=== PATIENT | male | born 1950 | race Caucasian/White ===

== ENCOUNTER → 2016-11-13 | Outpatient (CLI) | payer MEDICARE, BC ==
--- NOTE | 2016-11-13 23:21 | MR ---
EXAMINATION TYPE: MR shoulder RT wo con DATE OF EXAM: 11/13/2016 COMPARISON: NONE HISTORY: Shoulder pain TECHNIQUE: Multiplanar, multisequence imaging of the right shoulder is performed without contrast. FINDINGS: There is a mild shoulder joint effusion with fluid around the biceps tendon. There is also some fluid around the subscapularis tendon. Subscapularis tendon is intact. Biceps tendon is intact. There is l arge defect in the supraspinatus tendon at the greater tuberosity of the humerus. There is some retra ction. There is moderate narrowing of the subacromial joint space. There is mild spurring at the AC j oint. I see no fracture. The glenoid chelita appear intact. IMPRESSION: There is a very large rotator cuff tear with some retraction of the supraspinatus tendon. Moderate-si zed shoulder joint effusion. No fracture. Moderate subacromial impingement. Subacromial joint space n arrowing.
== END | disposition home or self-care (01) ==
LOC: RADMRIMAIN 19:59
PROVIDERS: ATTEND Orthopaedic Surgery
DX: M75.101 Unspecified rotator cuff tear or rupture of right shoulder, not specified as traumatic (principal)

== ENCOUNTER 2017-04-11 08:09 | Day surgery (SDC) | payer MEDICARE, BC ==
[2017-04-10 08:56] VITALS: BMI 26.8
--- NOTE | 2017-04-10 18:15 | HP ---
HISTORY AND PHYSICAL DATE OF SURGERY: 04/11/2017 Matt Ferguson is a 66-year-old patient seen with right shoulder pain. We discussed options. He elected to proceed with arthroscopy. Consent was obtained. Medical clearance was provided by Dr. Pb Holland. PAST MEDICAL HISTORY: Hypertension. PAST SURGICAL HISTORY: Knee arthroscopy. DAILY MEDICATIONS: 1. Amlodipine. 2. Benazepril. ALLERGIES: NONE. SOCIAL HISTORY: Patient denies current tobacco use. PHYSICAL EVALUATION OF RIGHT SHOULDER: Flexion 140 degrees, abduction 120 degrees, external rotation 30 degrees with weakness. Tenderness along the anterolateral acromion and rotator cuff insertion. Impingement sign positive at 90 degrees. Drop-arm sign is positive. Distal neurovascular exam is intact. RIGHT SHOULDER RADIOGRAPHS: Right shoulder radiographs revealed a type 2 anterior acromion, cystic changes of the greater tuberosity. A right shoulder MRI revealed a retracted rotator cuff tendon tear. IMPRESSION: Right shoulder impingement with rotator cuff tear. PLAN: Right shoulder arthroscopy, subacromial decompression, possible arthroscopic rotator cuff repair and debridement. MMODL / IJN: [id number] /
[~2017-04-11 08:09] MED LIST: HYDROmorphone 1 MG/ML 1 ML SYRINGE IVP PRN; LACTATED RINGERS 1,000 ML IV SCH; ONDANSETRON 4 MG/2 ML VIAL IVP PRN; ceFAZolin IN SWFI 2 GM/20 ML SYRINGE IVP ONE
[2017-04-11 08:25] VITALS: RESP 16
[2017-04-11] MEDS ORDERED: LIDOCAINE 1% 20 ML VIAL (10MG/ML) FOR IV START INTRADERMA ONE (08:28)
[2017-04-11] MEDS ORDERED: MIDAZOLAM 2 MG/2 ML VIAL IV ONE (09:17)
[2017-04-11] MEDS ORDERED: SUCCINYLCHOLINE CHLORIDE 100 MG/5 ML SYR IV ONE (09:50)
[2017-04-11] MEDS ORDERED: MIDAZOLAM 2 MG/2 ML VIAL ONE (09:50)
[2017-04-11] MEDS ORDERED: fentaNYL (PF) 50 MCG/ML 2 ML AMP ONE (09:50)
[2017-04-11] MEDS ORDERED: PROPOFOL 10 MG/ML 20 ML VIAL IV ONE (09:50)
[2017-04-11] MEDS ORDERED: LIDOCAINE 1%-EPI 1:100,000 20 ML VIAL ONE (09:50)
[2017-04-11] MEDS ORDERED: ROPIVACAINE 5 MG/ML 30 ML VIAL ONE (09:50)
[2017-04-11] MEDS ORDERED: ePHEDrine SULFATE/0.9% NACL/PF 50 MG/5 ML SYRINGE IV ONE (09:50)
[2017-04-11] MEDS ORDERED: LIDOCAINE 1% INJ 10MG/ML (20 ML MDV) ONE (09:50)
[2017-04-11] MEDS ORDERED: LACTATED RINGERS 1,000 ML IV ONE ×2 (10:24)
[2017-04-11 11:41] VITALS: TEMP 96.7
--- NOTE | 2017-04-11 11:49 | P.OP ---
Date of Procedure: 04/11/17 Preoperative Diagnosis: Right shoulder impingement with rotator cuff tear Postoperative Diagnosis: 1. Right shoulder rotator cuff tear 2. Right shoulder impingement 3. Right shoulder acromioclavicular joint osteoarthritis 4. Right shoulder partial long head biceps tendon tear 5. Right shoulder superficial anterior and superior labral tears 6. 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 Right shoulder arthroscopic rotator cuff repair 2. Right shoulder arthroscopic subacromial decompression 3. Right shoulder arthroscopic Xiomara procedure 4. Right shoulder arthroscopic biceps tenotomy 5. Right shoulder arthroscopic debridement labral tear 6. Right shoulder arthroscopic chondroplasty glenoid fossa Implants: 4-4.5 peek anchors Anesthesia: GETA, regional (Interscalene block) Surgeon: Fermin Parisi Patient Partner #1: Missael House Estimated Blood Loss (ml): 10 Pathology: none sent Condition: stable Disposition: PACU Indications for Procedure: 66-year-old patient seen with progressive right shoulder pain. After having treatment options discussed, he elected to proceed with arthroscopy. Operative Findings: See description of procedure Description of Procedure: Patient underwent a shoulder block by department of anesthesia. The patient was then taken to the operative suite. The patient underwent a general anesthetic by the department of anesthesia. The patient was placed into a lateral position and secured. There was appropriate padding of the bony prominence. Right shoulder was then prepped and draped in normal sterile orthopedic fashion. We placed the extremity in 10 pounds of longitudinal traction. A posterior incision was now made for a posterior working portal site. The trocar and cannula were inserted into the glenohumeral joint. Arthroscopy was initiated. Spinal needle was now inserted anteriorly, to ascertain the anterior working portal site. An incision was now made in that area, a trocar was inserted followed by a probe. There was superficial tearing of the anterior and superior labrum. There was significant partial tearing long head biceps tendon. There was an area of grade 1/2 chondromalacia glenoid fossa centrally with small osteochondral tears. The humeral head was unremarkable. The posterior and inferior labrum were stable. There was an obvious large rotator cuff tear visualized from glenohumeral side. I performed an arthroscopic biceps tenotomy. I debrided the superficial labral tears down to stable tissue. I performed a chondroplasty of the glenoid fossa down to stable tissue. The residual labrum was stable. The residual osteochondral surface of the glenoid was stable. Instruments were now removed from the glenohumeral joint. Utilizing the posterior working portal site, the trocar and cannula were inserted into the subacromial space. Arthroscopy initiated. I made an incision 2 fingerbreadths lateral to the acromion. I introduced my trocar followed by my ArthroCare ablator. I now began ablating thick subacromial bursal tissue, which exposed the undersurface of the anterior acromion. This was diminished subacromial space. There was a very prominent anterior acromion. A motorized bur was introduced and a subacromial decompression was performed. I also excised some osteophytes off the inferior aspect of the distal clavicle. The AC joint was visualized and noted to be fairly arthritic. Our motorized bur was introduced in the anterior portal site and a Xiomara procedure was performed without difficulty, decompressing the AC joint nicely. I turned my attention to the rotator cuff. There was a 2.5 cm tear along the distal supraspinatus. It was freely mobile over the footprint. I debrided the margins down to stable tissue. I abraded the footprint with a motorized bur. I created an helmet coverer he portal site off the lateral acromion. I introduced 2 medial row anchors with 2 sutures each. I passed all 8 limbs of suture through good bites of rotator cuff tendon. We then crisscrossed the sutures and introduced 2 lateral anchors compressing the tendon along the footprint very nicely. The residual suture limbs were clipped. The repair was stable. Instruments now removed from the portal sites. All portal sites were approximated with nylon suture. Sterile dressings were applied followed by a shoulder immobilizer. Mika MCCRAY assisted with the procedure. The patient was awakened, transferred to a bed, and taken to recovery in stable condition.
[2017-04-11] MEDS ORDERED: ONDANSETRON 4 MG/2 ML VIAL IVP ONE (12:08)
[2017-04-11] MEDS ORDERED: HYDROcodone/APAP 7.5-325MG 1 EACH TAB PO ONE (13:57)
[2017-04-11 14:33] VITALS: BP 169/88; PULSE 47
== END 2017-04-11 14:50 | disposition home or self-care (01) ==
LOC: OR 08:09
PROVIDERS: ATTEND Orthopaedic Surgery
DX: M75.101 Unspecified rotator cuff tear or rupture of right shoulder, not specified as traumatic (principal); M19.011 Primary osteoarthritis, right shoulder; S46.111A Strain of muscle, fascia and tendon of long head of biceps, right arm, initial encounter; M25.711 Osteophyte, right shoulder; X58.XXXA Exposure to other specified factors, initial encounter; M94.211 Chondromalacia, right shoulder; I10 Essential (primary) hypertension; Z87.891 Personal history of nicotine dependence; Z79.1 Long term (current) use of non-steroidal anti-inflammatories (NSAID); Z79.899 Other long term (current) drug therapy
CPT/HCPCS: 64415; 84132; 29826; 29827; 29824; C1713; J2250; J0690; J2405; J2001; J3010; J2795; J0330; J2704

== ENCOUNTER → 2018-05-01 | Outpatient (CLI) | payer MEDICARE, BC ==
--- NOTE | 2018-05-01 10:13 | XR ---
EXAMINATION TYPE: XR lumbar spine 2 or 3V DATE OF EXAM: 05/01/2018 COMPARISON: None HISTORY: Lower back pain TECHNIQUE: Three-view lumbar spine FINDINGS: Lumbar pedicles are intact. Spondylosis is present. There is loss of disc height throughout the lumbar spine. Vacuum disc phenomenon is present. Posterio r endplate spurring is noted within the mid lumbar spine. IMPRESSION: 1. Multilevel degenerative disc changes and spondylosis. 2. There may be 6 lumbar-type vertebral bodies. Plain film correlation be recommended prior to surgic al intervention.
--- NOTE | 2018-05-01 10:16 | XR ---
EXAMINATION TYPE: XR cervical spine limited DATE OF EXAM: 05/01/2018 COMPARISON: None HISTORY: Neck pain TECHNIQUE: Three-view cervical spine FINDINGS: There is loss of disc height posteriorly at C3-4. Diffuse loss of disc height is present C5 -6 C6-7. Small anterior vertebral body spurs are present C4 and C5. There may be a minimal retrolisth esis of C3 on C4. There is a step-off of the posterior spinal lamellar line C3-4 level. Calcifications at the right carotid region. IMPRESSION: 1. Mild grade 1 retrolisthesis of C3 3 posterior on C4. There is a step-off on the posterior spinal lamellar line. Consider additional evaluation with MRI.
== END | disposition home or self-care (01) ==
LOC: RADXRMAIN 09:19
PROVIDERS: ATTEND Family Medicine
DX: M43.12 Spondylolisthesis, cervical region (principal); M47.816 Spondylosis without myelopathy or radiculopathy, lumbar region
CPT/HCPCS: 72040; 72100

== ENCOUNTER → 2020-11-23 | Outpatient (CLI) | payer MEDICARE, BC ==
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
== END | disposition home or self-care (01) ==
LOC: RADXRMAIN 16:40
PROVIDERS: ATTEND Family Medicine
DX: S13.4XXA Sprain of ligaments of cervical spine, initial encounter (principal)
CPT/HCPCS: 72050

== ENCOUNTER → 2020-12-30 | Outpatient (CLI) | payer MEDICARE, BC ==
--- NOTE | 2021-01-02 18:59 | MR ---
EXAMINATION TYPE: MR shoulder LT wo con DATE OF EXAM: 12/30/2020 COMPARISON: Outside radiographic 12/07/2020 HISTORY: 70-year-old male Left shoulder pain, decreased ROM x 2 years. TECHNIQUE: Multiplanar, multisequence imaging of the left shoulder is performed without contrast. FINDINGS: Intracapsular portion of the long head biceps tendon demonstrates diffusely heterogeneously thickened . Moderate tenosynovial fluid along the biceps. There is some bursal sided fraying of the subscapularis tendon. The majority of the subscapularis ten don remains intact. Incidental intramuscular lipoma measuring 2.6 x 0.8 cm within the subscapularis m uscle belly. Moderate degenerative joint space narrowing and marginal spurring at the acromioclavicular joint. Inf erior spurring has mass effect on to the underlying myotendinous junction of the supraspinatus. Diffuse thickening and heterogeneity of both the supraspinatus and infraspinatus tendons. At the far anterior footprint of the supraspinous tendon, there is a 1 cm long by 0.6 cm AP intrasubstance tear that may have small bursal sided communication. Additional intrasubstance tear at the footprint of the mid supraspinous tendon measuring 7 x 5 mm. No high-grade partial or full-thickness tear of either supraspinatus or infraspinous tendon. Minimal fatty streaks throughout the infraspinatus muscle belly without significant atrophy. There is moderate degenerative thinning of the glenohumeral joint articular cartilage with inferior s purring and loose body measuring 1.2 cm within the subcoracoid recess. Diffusely degenerative and het erogeneous superior and posterior glenoid labrum with a 1.1 cm paralabral cyst along the posterior freitas perior quadrant. Mild glenohumeral joint effusion. No significant thickening or fluid distention of the subacromial/subdeltoid bursa. No Hill-Sachs deformity or os acromiale. No suspicious bone marrow replacement. IMPRESSION: 1. Marked diffuse rotator cuff tendinosis. A couple intrasubstance tears at the footprint of the supr aspinatus tendon measure up to 1 cm long. No high-grade partial or full-thickness rotator cuff tear. 2. Additional shallow bursal sided tearing of the subscapularis tendon. 3. Severe tendinosis versus partial tear of the intracapsular portion of the long head biceps tendon with associated moderate tenosynovitis. 4. Moderate glenohumeral joint OA with a diffusely degenerative and torn glenoid labrum and a 1.1 cm posterior superior paralabral cyst. 5. Moderate AC joint OA with mild impingement on the underlying cuff.
== END | disposition home or self-care (01) ==
LOC: RADMRIMAIN 10:52
PROVIDERS: ATTEND Orthopaedic Surgery
DX: M67.814 Other specified disorders of tendon, left shoulder (principal); M75.112 Incomplete rotator cuff tear or rupture of left shoulder, not specified as traumatic; M19.012 Primary osteoarthritis, left shoulder; M24.112 Other articular cartilage disorders, left shoulder; M65.812 Other synovitis and tenosynovitis, left shoulder

== ENCOUNTER 2021-04-06 06:09 | Day surgery (SDC) | payer MEDICARE, BC ==
[2021-04-04 15:01] VITALS: BMI 27.1
--- NOTE | 2021-04-05 13:26 | HP ---
HISTORY AND PHYSICAL REASON FOR ADMISSION: Surgery scheduled 04/06/2021. Matt Ferguson is a 70-year-old gentleman seen with progressive left shoulder pain. We discussed options for treatment. He elected to proceed with left shoulder arthroscopy. Consent was obtained. Medical clearance was provided by Dr. Holland. PAST MEDICAL HISTORY: Hypertension, hyperlipidemia. PAST SURGICAL HISTORY: Shoulder arthroscopy, knee arthroscopy. DAILY MEDICATIONS: Amlodipine, atorvastatin, bisoprolol, ibuprofen. ALLERGIES: None reported. SOCIAL HISTORY: He denies tobacco use. PHYSICAL EVALUATION OF THE LEFT SHOULDER: Flexion 150 degrees, abduction 135 degrees. External rotation is 40 degrees. Some weakness and tenderness along the anterolateral acromion rotator cuff insertion site. Impingement positive at 90 degrees. Cross-body adduction sign is positive. Drop-arm sign is positive. Distal neurovascular exam is intact. RADIOGRAPHS: Left shoulder radiographs revealed a type 2 acromion along with evidence for acromioclavicular joint osteoarthritis. MRI left shoulder revealed a partial rotator cuff tear, acromioclavicular joint osteoarthritis, partial long head biceps tear, and some glenohumeral osteoarthritic changes. IMPRESSION: 1. Left shoulder impingement with partial rotator cuff tear. 2. Left shoulder acromioclavicular joint osteoarthritis. 3. Left shoulder partial long head biceps tendon tear. 4. Hypertension. 5. Hyperlipidemia. PLAN: Left shoulder arthroscopy, subacromial decompression, arthroscopic rotator cuff repair, possible Xiomara procedure, biceps tenotomy and debridement. Surgery is scheduled 04/06/2021. MMODL / IJN: [id number] /
[~2021-04-06 06:09] MED LIST changes: +DEXAMETHASONE SOD PHOSPHATE 4 MG/ML 1 ML VIAL IV ONE; -HYDROmorphone 1 MG/ML 1 ML SYRINGE IVP PRN; +ONDANSETRON 4 MG/2 ML VIAL IVP ONE; -ONDANSETRON 4 MG/2 ML VIAL IVP PRN; -ceFAZolin IN SWFI 2 GM/20 ML SYRINGE IVP ONE
[2021-04-06] MEDS ORDERED: HYDROmorphone 0.5 MG/0.5 ML SYRINGE IVP PRN (07:00)
[2021-04-06] MEDS ORDERED: MIDAZOLAM 2 MG/2 ML VIAL IVP ONE (07:05)
[2021-04-06] MEDS ORDERED: MIDAZOLAM 2 MG/2 ML VIAL ONE (07:25)
[2021-04-06] MEDS ORDERED: fentaNYL (PF) 50 MCG/ML 2 ML AMP ONE (07:25)
[2021-04-06] MEDS ORDERED: ROPIVACAINE 5 MG/ML 30 ML VIAL ONE (07:25)
[2021-04-06] MEDS ORDERED: ePHEDrine 50 MG/ML 1 ML AMP ONE (07:25)
[2021-04-06] MEDS ORDERED: PROPOFOL 10 MG/ML 20 ML VIAL IV ONE (07:25)
[2021-04-06] MEDS ORDERED: LIDOCAINE 1% INJ 10MG/ML (20 ML MDV) ONE (07:25)
[2021-04-06] MEDS ORDERED: SUCCINYLCHOLINE CHLORIDE 100 MG/5 ML SYR IV ONE (07:25)
[2021-04-06] MEDS ORDERED: GLYCOPYRROLATE 0.2 MG/ML 2 ML VIAL ONE (07:25)
[2021-04-06] MEDS ORDERED: LACTATED RINGERS 1,000 ML IV ONE (07:28)
[2021-04-06 08:45] VITALS: TEMP 96.8
--- NOTE | 2021-04-06 08:46 | P.ANPRN ---
Procedure Note - Anesthesia - Nerve Block Performed Left Interscalene Time Out Performed: Yes (07:04) Date of Procedure: 04/06/21 Procedure Start Time: Procedure Stop Time: :14 Location of Patient: PreOp Indication: Acute Post-Operative Pain, Requested by Surgeon (Dr Parisi) Sedation Type: Sedate with meaningful contact maintained Preparation: Sterile Prep Position: Supine Catheter: None Needle Types: Pajunk Needle Gauge: Other (see comment) (22g) Ultrasound used to visualize needle placement: Yes Ultrasound used to observe medication spread: Yes Injectate: 0.5% Ropivacaine (see comment for volume) (20cc) Blood Aspirated: No Pain Paresthesia on Injection Noted: No Resistance on Injection: Normal Image Stored and Saved: Yes Events: Uneventful and Well Tolerated
--- NOTE | 2021-04-06 08:48 | P.OP ---
Date of Procedure: 04/06/21 Preoperative Diagnosis: Left shoulder impingement Postoperative Diagnosis: 1. Left shoulder rotator cuff tear 2. Left shoulder impingement 3. Left shoulder acromioclavicular joint osteoarthritis 4. Left shoulder partial long head biceps tendon tear 5. Left shoulder grade 4 chondromalacia glenohumeral joint Procedure(s) Performed: 1. Left shoulder arthroscopic rotator cuff repair 2. Left shoulder arthroscopic subacromial decompression 3. Left shoulder arthroscopic Xiomara procedure 4. Left shoulder arthroscopic biceps tenotomy Implants: 14.75 Arthrex swivel lock anchor Anesthesia: GETA, regional (Interscalene block) Surgeon: Fermin Parisi Accountant Helper #1: Manjit Martin Estimated Blood Loss (ml): 7 Pathology: none sent Condition: stable Disposition: PACU Indications for Procedure: 70-year-old patient seen with progressive left shoulder pain. After having treatment options discussed, he elected to proceed with arthroscopy. Operative Findings: See description of procedure Description of Procedure: Patient underwent an interscalene block by department of anesthesia. The patient was then taken to the operative suite. The patient underwent a general anesthetic by the department of anesthesia. The patient was placed into a lateral position and secured. There was appropriate padding of the bony prominence. Left shoulder was then prepped and draped in normal sterile orthopedic fashion. We placed the extremity in 10 pounds of longitudinal traction. A posterior incision was now made for a posterior working portal site. The trocar and cannula were inserted into the glenohumeral joint. Arthroscopy was initiated. Spinal needle was now inserted anteriorly, to ascertain the anterior working portal site. An incision was now made in that area, a trocar was inserted followed by a probe. There was significant partial tearing long head biceps tendon. There was some superficial fraying of the anterior and superior labrum. Inferiorly and noted an area of grade 4 chondromalacia involving the humeral head and glenoid fossa. This appeared to involve the inferior one third of the glenoid and the inferior one third of the humeral head only. I performed an arthroscopic biceps tenotomy. I debrided the superficial labral tears getting down to stable labral tissue. The residual labrum was probed and found to be stable. I removed instruments from glenohumeral joint. Utilizing the posterior working portal site, the trocar and cannula were inserted into the subacromial space. Arthroscopy initiated. I made an incision 2 fingerbreadths lateral to the acromion. I introduced my trocar followed by my ArthroCare ablator. I now began ablating thick subacromial bursal tissue, which exposed the undersurface of the anterior acromion. There was diminished subacromial space. There was a very prominent anterior acromion. A motorized bur was introduced and a subacromial decompression was performed. I also excised some osteophytes off the inferior aspect of the distal clavicle. The AC joint was visualized and noted to be fairly arthritic. The motorized bur was introduced in the anterior portal site and a Xiomara procedure was performed wit hout difficulty, decompressing the AC joint nicely. I turned my attention to the rotator cuff. There was an area of significant partial tearing along the distal supraspinatus. Upon probing the area there was a full-thickness perforation present. I debrided the margins getting down to stable tendon tissue. I abraded the footprint with a motorized bur. With the assistance of Manjit MCCRAY I passed 2 everted mattress sutures through good bites of rotator cuff tendon. I did note a possible dogear posteriorly and passed a Arthrex suture length to address that. I now punched a hole in the footprint for insertion of anchor. All 5 limbs of suture were passed through the eyelet of a 4.75 Arthrex swivel lock anchor. I placed the eyelet into the pre-punched hole and held there while Manjit MCCRAY tension all the sutures and deployed the anchor with good fixation noted. All residual suture limbs were now clipped. We had good compression of the tendon along the entire footprint. Instruments now removed from the portal sites. All portal sites were approximated with nylon suture. Sterile dressings were applied followed by a shoulder sling. Manjit MCCRAY assisted in this case. The patient was awakened, transferred to a bed, and taken to recovery in stable condition.
[2021-04-06 09:53] VITALS: RESP 16
[2021-04-06 09:55] VITALS: BP 160/78; PULSE 78
== END 2021-04-06 10:50 | disposition home or self-care (01) ==
LOC: OR 06:09
PROVIDERS: ATTEND Orthopaedic Surgery
DX: M75.42 Impingement syndrome of left shoulder (principal); M75.102 Unspecified rotator cuff tear or rupture of left shoulder, not specified as traumatic; M25.812 Other specified joint disorders, left shoulder; M19.012 Primary osteoarthritis, left shoulder; M94.212 Chondromalacia, left shoulder; S46.112A Strain of muscle, fascia and tendon of long head of biceps, left arm, initial encounter; X58.XXXA Exposure to other specified factors, initial encounter; I10 Essential (primary) hypertension; E78.5 Hyperlipidemia, unspecified; Z79.1 Long term (current) use of non-steroidal anti-inflammatories (NSAID); Z79.899 Other long term (current) drug therapy; Z98.890 Other specified postprocedural states
CPT/HCPCS: 29826; 29827; 29824; 64415; 76942; C1713; J2250; J1100; J0690; J2405; J2001; J3010; J2795; J0330; J2704

== ENCOUNTER → 2024-09-04 | Outpatient (CLI) | payer MEDICARE, BC ==
[2024-09-04 15:38] LABS: African American GFR (CKD) 89 (>60 ml/min/1.73 sqM); Blood Urea Nitrogen 25 mg/dL (9-20); Non-African American GFR(CKD) 77 (>60 ml/min/1.73 sqM)
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
== END | disposition home or self-care (01) ==
LOC: RADCTMAIN 15:08
PROVIDERS: ATTEND Family Medicine
DX: I71.21 Aneurysm of the ascending aorta, without rupture (principal); R22.1 Localized swelling, mass and lump, neck
CPT/HCPCS: 82565; 84520; 70491; 36415; Q9967